=== PATIENT | female | born 1990 | race Two or more races ===

== ENCOUNTER 2016-12-21 14:35 | Emergency (ER) | payer OTHER ==
[2016-12-21] MEDS ORDERED: fentaNYL-PF 50 mCg/mL 2 mL Inj IVPUSH PRN (15:05)
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
[2016-12-21 15:17] LABS: INR 1.02 ratio
[2016-12-21 15:38] LABS: BASOPHILS % (AUTO) 0.3 % (0-3); EOSINOPHILS % (AUTO) 1.7 % (0-5); MONOCYTES % (AUTO) 7.5 % (4-12); Mean Corpuscular Hemoglobin 29.6 pg (27.0-35.0); Mean Corpuscular Volume 88.9 fL (81-100); NEUTROPHILS % (AUTO) 69.7 % (40-74); Platelet Count 415 bil/L (150-400)
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
[2016-12-21] MEDS ORDERED: HYDR-4003 PO (17:45)
[2016-12-21] MEDS ORDERED: IBUP400T22 PO (17:45)
[2016-12-21] MEDS ORDERED: _HYDROcodone/APAP 5-325 mg Tablet PO PRN (17:50)
== END 2016-12-21 19:40 | disposition home or self-care (01) ==
LOC: SED 14:35
DX: R10.2 Pelvic and perineal pain (principal); R07.9 Chest pain, unspecified; V43.62XA Car passenger injured in collision with other type car in traffic accident, initial encounter; Y93.9 Activity, unspecified; Y92.410 Unspecified street and highway as the place of occurrence of the external cause; Y99.8 Other external cause status
CPT/HCPCS: 36415; 70450; 71010; 71260; 72125; 72170; 74177; 80053; 84703; 85025; 85610; 85730; 86850; 86922; 93005; 96374; 99285; G0390; G0480; J3010; Q9967